=== PATIENT | female | born 1975 | race Caucasian/White ===

== ENCOUNTER 2021-11-25 15:45 | Outpatient (CLI) | payer OTHER, SELFPAY | END 2021-11-25 15:46 | disposition home or self-care (01) | LOC: FRMREF 15:46 | PROVIDERS: Visit Provider Family Medicine | DX: Z00.00 Encounter for general adult medical examination without abnormal findings (principal); L40.9 Psoriasis, unspecified; Z11.3 Encounter for screening for infections with a predominantly sexual mode of transmission; Z12.4 Encounter for screening for malignant neoplasm of cervix | CPT/HCPCS: 87624; 88175 ==

== ENCOUNTER 2022-03-20 08:43 | Outpatient (CLI) | payer OTHER, SELFPAY ==
--- NOTE | 2022-03-20 09:15 | CRLHL7_ITS ---
For Patients: As a result of the Century Cures Act, medical imaging exams and procedure reports are released immediately into your electronic medical record. You may view this report before your referring provider. If you have questions, please contact your health care provider. SCREENING MAMMOGRAM WITH COMPUTER-AIDED DETECTION TECHNIQUE: CC and MLO views were obtained. These mammographic images have been obtained using full-field digital technique. These mammographic images were interpreted with the benefit of computer-aided detection. COMPARISON FILM: 11/22/20, 02/13/19. FINDINGS: The breasts are heterogeneously dense, which may obscure small masses IMPRESSION: There is no radiographic evidence for malignancy. ASSESSMENT: BI-RADS Category 1: Negative RECOMMENDATION: Routine screening mammogram in 1 year. A lay language report of this examination will be provided to the patient. Jonnie Zhu M.D. Diagnostic Radiologist [email or web address] Transcribed: 1:59 pm DW/Dictated by: Jonnie Zhu MD @ 04/03/2022 12:19:00 PM (Electronically Signed)
== END 2022-03-20 08:44 | disposition home or self-care (01) ==
LOC: MAMMO 08:45
PROVIDERS: PCP Family Medicine; Visit Provider Family Medicine
DX: Z12.31 Encounter for screening mammogram for malignant neoplasm of breast (principal); R92.2 Inconclusive mammogram
CPT/HCPCS: 77063; 77067

== ENCOUNTER 2022-10-12 06:59 | Outpatient (CLI) | payer OTHER, SELFPAY ==
--- NOTE | 2022-10-12 07:15 | CRLHL7_ITS ---
For Patients: As a result of the Century Cures Act, medical imaging exams and procedure reports are released immediately into your electronic medical record. You may view this report before your referring provider. If you have questions, please contact your health care provider. INDICATION: Cervical radiculopathy. TECHNIQUE: Multiplanar multisequence MR imaging acquired through the cervical spine without intravenous contrast. COMPARISON: None. FINDINGS: Mild rightward cervical curvature. Straightening of the cervical lordosis. Vertebral heights maintained. No acute fracture. No T1 hypointense marrow replacing lesions. The cervical cord is normal in signal intensity. C2-3: Annular bulge. No spinal canal or neural foraminal narrowing. C3-4: Annular bulge. No spinal canal or neural foraminal narrowing. C4-5: Trace retrolisthesis. Disc degeneration and mild disc height loss. Shallow posterior disc osteophyte complex indents the cord. Bilateral uncinate spurring. Mild spinal canal narrowing. No neural foraminal narrowing. C5-6: Trace retrolisthesis. Zxdg-ds-[id number] disc height loss. Posterior disc osteophyte complex indents the cord. Right greater left uncinate spurring. Mild spinal canal narrowing. Moderate right without left neural foraminal narrowing. C6-7: Shallow left eccentric disc bulge. Minimal spinal canal narrowing. No neural foraminal narrowing. C7-T1: Mild right and minimal left facet arthropathy. No spinal canal or neural foraminal narrowing. T1-2: No spinal canal or neural foraminal narrowing. IMPRESSION: 1. Multilevel cervical spondylosis without spinal canal stenosis. 2. At C5-6, moderate right neural foraminal stenosis with right C6 nerve root encroachment/impingement. Dictated by Ramo Puckett MD @ 10/12/2022 9:04:55 AM (Electronically Signed)
== END 2022-10-12 07:00 | disposition home or self-care (01) ==
LOC: MRI 07:02
PROVIDERS: PCP Physician Assistant Medical; Visit Provider Physician Assistant Medical
DX: M54.12 Radiculopathy, cervical region (principal); M47.892 Other spondylosis, cervical region; M48.02 Spinal stenosis, cervical region
CPT/HCPCS: 72141

== ENCOUNTER 2022-12-15 10:28 | Outpatient (CLI) | payer OTHER, SELFPAY | END 2022-12-15 10:29 | disposition home or self-care (01) | PROVIDERS: PCP Physician Assistant Medical; Visit Provider Family Medicine | DX: Z00.00 Encounter for general adult medical examination without abnormal findings (principal); Z13.6 Encounter for screening for cardiovascular disorders | CPT/HCPCS: 80053; 80061 ==

== ENCOUNTER 2023-04-20 10:06 | Outpatient (CLI) | payer OTHER, SELFPAY ==
--- NOTE | 2023-04-20 10:15 | CRLHL7_ITS ---
For Patients: As a result of the Century Cures Act, medical imaging exams and procedure reports are released immediately into your electronic medical record. You may view this report before your referring provider. If you have questions, please contact your health care provider. BILATERAL SCREENING MAMMOGRAM WITH COMPUTER-AIDED DETECTION AND TOMOSYNTHESIS TECHNIQUE: CC and MLO views were obtained. These mammographic images have been obtained using full-field digital technique. These mammographic images were interpreted with the benefit of computer-aided detection. Breast Tomosynthesis was used in this interpretation. COMPARISON FILM: 03/20/22, 11/22/20, 02/13/19. FINDINGS: The breasts are heterogeneously dense, which may obscure small masses IMPRESSION: There is no radiographic evidence for malignancy. ASSESSMENT: BI-RADS Category 1: Negative RECOMMENDATION: Routine screening mammogram in 1 year. A lay language report of this examination will be provided to the patient. Jonnie Zhu M.D. Diagnostic Radiologist [email or web address] MANOLO/Dictated by: Jonnie Zhu MD @ 04/20/2023 12:15:00 PM (Electronically Signed)
== END 2023-04-20 10:07 | disposition home or self-care (01) ==
PROVIDERS: PCP Physician Assistant Medical; Visit Provider Family Medicine
DX: Z12.31 Encounter for screening mammogram for malignant neoplasm of breast (principal); R92.2 Inconclusive mammogram
CPT/HCPCS: 77063; 77067

== ENCOUNTER 2024-01-14 15:30 | Outpatient (CLI) | payer OTHER, SELFPAY | END 2024-01-14 15:31 | disposition home or self-care (01) | PROVIDERS: PCP Family Medicine; Visit Provider Family Medicine | DX: Z00.00 Encounter for general adult medical examination without abnormal findings (principal); R63.5 Abnormal weight gain; N92.0 Excessive and frequent menstruation with regular cycle; R68.82 Decreased libido; Z13.6 Encounter for screening for cardiovascular disorders | CPT/HCPCS: 80053; 80061; 84443 ==

== ENCOUNTER 2024-04-21 07:49 | Outpatient (CLI) | payer OTHER, SELFPAY ==
--- NOTE | 2024-04-21 08:15 | CRLHL7_ITS ---
For Patients: As a result of the Century Cures Act, medical imaging exams and procedure reports are released immediately into your electronic medical record. You may view this report before your referring provider. If you have questions, please contact your health care provider. BILATERAL SCREENING MAMMOGRAM WITH COMPUTER-AIDED DETECTION AND TOMOSYNTHESIS TECHNIQUE: CC and MLO views were obtained. These mammographic images have been obtained using full-field digital technique. These mammographic images were interpreted with the benefit of computer-aided detection. Breast Tomosynthesis was used in this interpretation. COMPARISON FILM: 04/20/23, 03/20/22, 11/22/20. FINDINGS: The breasts are heterogeneously dense, which may obscure small masses. IMPRESSION: There is no radiographic evidence for malignancy. ASSESSMENT: BI-RADS Category 1: Negative RECOMMENDATION: Routine screening mammogram in 1 year. A lay language report of this examination will be provided to the patient. Jonnie Zhu M.D. Diagnostic Radiologist [email or web address] SP/Dictated by: Jonnie Zhu MD @ 04/21/2024 9:38:00 AM (Electronically Signed)
== END 2024-04-21 07:50 | disposition home or self-care (01) ==
LOC: MAMMO 07:49
PROVIDERS: PCP Family Medicine; Visit Provider Family Medicine
DX: Z12.31 Encounter for screening mammogram for malignant neoplasm of breast (principal); R92.333 Mammographic heterogeneous density, bilateral breasts
CPT/HCPCS: 77063; 77067

== ENCOUNTER 2025-02-22 09:52 | Outpatient (CLI) | payer OTHER, SELFPAY | END 2025-02-22 09:53 | disposition home or self-care (01) | PROVIDERS: PCP Family Medicine; Visit Provider Family Medicine | DX: Z00.00 Encounter for general adult medical examination without abnormal findings (principal) | CPT/HCPCS: 80053; 80061; 83001 ==

== ENCOUNTER 2025-02-28 12:35 | Outpatient (CLI) | payer OTHER, SELFPAY ==
--- NOTE | 2025-02-28 13:00 | CRLHL7_ITS ---
For Patients: As a result of the Century Cures Act, medical imaging exams and procedure reports are released immediately into your electronic medical record. You may view this report before your referring provider. If you have questions, please contact your health care provider. INDICATION: Postmenopausal bleeding COMPARISON: None. TECHNIQUE: 2D mann-scale and color Doppler images were acquired of the pelvis using a transabdominal and transvaginal approach. Transvaginal imaging performed to better visualize the endometrial stripe and ovaries. FINDINGS: Sonographic images demonstrate a normal size and smooth outer contour of the uterus. Uterus measures 6.1 cm in length by 3.1 cm in AP diameter by 4.6 cm in transverse dimension. The myometrium has a heterogeneous echotexture. The endometrial lining measures 2 mm in composite thickness. The right ovary measures 2.5 x 1.6 x 1.4 cm in size and the left ovary measures 3.2 x 1.1 x 1.1 cm. The ovaries demonstrate normal arterial and venous blood flow on color Doppler analysis. There are no suspicious fluid collections within the cul-de-sac. IMPRESSION: Endometrial thickness 2 millimeters. Dictated by Jonnie Zhu MD @ 02/28/2025 4:34:57 PM (Electronically Signed)
== END 2025-02-28 12:36 | disposition home or self-care (01) ==
LOC: US 12:35
PROVIDERS: PCP Family Medicine; Visit Provider Obstetrics & Gynecology
DX: N95.0 Postmenopausal bleeding (principal); R93.89 Abnormal findings on diagnostic imaging of other specified body structures
CPT/HCPCS: 76830; 76856